=== PATIENT | female | born 1985 | race Caucasian/White ===

== ENCOUNTER → 2017-11-08 19:18 | Outpatient (CLI) | payer BC, SELFPAY ==
[2017-11-14 10:13] LABS: HPV APTIMA, High Risk Positive (Negative)
== END ==
PROVIDERS: Family Provider Family Medicine; PCP Family Medicine; Visit Provider Obstetrics & Gynecology
DX: Z12.4 Encounter for screening for malignant neoplasm of cervix (principal)
CPT/HCPCS: 88175; G0145

== ENCOUNTER → 2017-12-23 12:13 | Outpatient (CLI) | payer BC, SELFPAY ==
[2017-12-23 13:06] LABS: Absolute Lymphocyte Count 1.65 X10^3/ul (0.83-4.51); Absolute Neutrophil Count 3.8 X10^3/uL (2.0-7.7); Basophil# 0.01 X10^3/uL; Basophil% 0.2 % (0-1); Eosinophil# 0.05 X10^3/uL; Eosinophils% 0.8 % (0-5); Hematocrit 41.8 % (37-47); Hemoglobin 14.4 g/dl (12.0-15.0); Lymphocyte # 1.65 X10^3/ul (4.0); Lymphocyte % 27.5 % (19-41); Mean Corp Hgb Conc 34.4 g/gl (32-36); Mean Corpuscular Hgb 30.8 pg (27.0-32.0); Mean Corpuscular Volume 89.3 fL (81-99); Mean Platelet Vol. 9.5 fl (6.2-12.0); Monocyte# 0.44 X10^3/uL; Monocyte% 7.3 % (0-10); Neutrophil # 3.83 X10^3/uL (2.7-7.7); Platelet Count 314 K/mm3 (150-450); RBC Distribution Width CV 13.2 % (11.6-14.6); RBC Distribution Width SD 42.8 fl (35.1-43.9); Red Blood Count 4.68 M/mm3 (4.2-5.4)
[2017-12-23 13:07] LABS: POSITIVE COUNT NO; POSITIVE DIFFERENTIAL NO; POSITIVE MORPHOLOGY NO
[2017-12-23 13:48] LABS: hCG Titer Quant., Serum 6938 mIU/mL (<9 non-preg)
[2017-12-23 14:16] LABS: HIV - WCH Non-Reactive (Nonreactive); Rubella IgG 157.7 IU/mL
[2017-12-23 22:11] LABS: Chlamydia Trachomatis by PCR Negative (Negative); Neisserai gonorrhoeae by PCR Negative (Negative); Probe Check PASS; Sample Adequacy Control PASS; Specimen Processing Control PASS
[2017-12-24 09:51] LABS: HEPATITIS B SURFACE AG Negative (Negative)
[2017-12-27 05:01] LABS: Rapid Plasmin Reagin (RPR) NONREACTIVE (NONREACTIVE)
== END ==
PROVIDERS: Family Provider Family Medicine; PCP Family Medicine; Visit Provider Obstetrics & Gynecology
DX: O09.90 Supervision of high risk pregnancy, unspecified, unspecified trimester (principal); O20.0 Threatened abortion; Z3A.00 Weeks of gestation of pregnancy not specified
CPT/HCPCS: 36415; 84702; 85025; 86592; 86703; 86762; 86850; 86900; 87077; 87086; 87088; 87186; 87340; 87491; 87591

== ENCOUNTER → 2017-12-26 11:17 | Outpatient (CLI) | payer BC, SELFPAY ==
[2017-12-26 12:15] LABS: Thyroid Stim Hormone (TSH) 0.25 uIU/mL (0.358-3.74)
[2017-12-26 13:08] LABS: Vitamin D,25 Hydroxy 22.6 ng/mL (29.95-100.01); hCG Titer Quant., Serum 13132 mIU/mL (<9 non-preg)
== END ==
PROVIDERS: Family Provider Family Medicine; PCP Family Medicine; Visit Provider Obstetrics & Gynecology
DX: Z12.4 Encounter for screening for malignant neoplasm of cervix (principal); N97.0 Female infertility associated with anovulation; Z13.220 Encounter for screening for lipoid disorders; Z13.21 Encounter for screening for nutritional disorder; E28.2 Polycystic ovarian syndrome; Z13.1 Encounter for screening for diabetes mellitus; O20.0 Threatened abortion
CPT/HCPCS: 36415; 82306; 84443; 84702

== ENCOUNTER → 2019-06-25 12:47 | Outpatient (CLI) | payer BC, SELFPAY ==
[2019-06-25 14:29] LABS: T4 Free Direct 1.02 ng/dL (0.76-1.46); Thyroid Stim Hormone (TSH) 0.62 uIU/mL (0.358-3.74); Vitamin D,25 Hydroxy 27.3 ng/mL (29.95-100.01)
[2019-06-26 16:08] LABS: Thyroid Stim Immunoglob <0.10 IU/L (0.00-0.55)
[2019-06-27 13:06] LABS: Anti-Thyroglobulin AB < 1.0 IU/mL (0.0-0.9); Thyroglobulin, Serum Qt. 31.3 ng/mL (1.5-38.5); Thyroid Peroxidase AB 13 IU/mL (0-34)
== END ==
PROVIDERS: Family Provider Family Medicine; PCP Family Medicine; Referring Provider Family Medicine; Visit Provider Family Medicine
DX: E01.0 Iodine-deficiency related diffuse (endemic) goiter (principal); E55.9 Vitamin D deficiency, unspecified; R79.89 Other specified abnormal findings of blood chemistry
CPT/HCPCS: 36415; 82306; 84432; 84439; 84443; 84445; 86376; 86800

== ENCOUNTER → 2019-06-26 08:46 | Outpatient (CLI) | payer BC, SELFPAY ==
--- NOTE | 2019-06-26 09:06 | US_ITS ---
STUDY: THYROID ULTRASOUND REASON FOR EXAM: Female, 34 years old. THYROMEGALY FELT BY DOCTOR -- LAST ULTRASOUND 2013 -- BIOPSY 2006 TECHNIQUE: Ultrasound evaluation of the thyroid was performed with real-time and static henry-scale imaging. COMPARISON: 04/19/2014 FINDINGS: RIGHT LOBE: The right lobe of the thyroid gland measures 5.5 x 2.2 x 1.9 cm. There is a homogeneous echotexture. There is no change from 1.6 x 2.4 cm oval hypoechoic solid nodule with microcalcifications. Ultrasound guided biopsy of this nodule is recommended if never performed. LEFT LOBE: The left lobe of the thyroid gland measures 5.5 x 1.8 x 1.0 cm. There is a homogeneous echotexture. No change in the 6 cm hypoechoic solid nodule in the left lobe consistent with an adenoma. Also no change in the smaller of 3 mm adenoma in the left lobe. ISTHMUS: The isthmus measures 3 mm thick. . The regional lymph nodes are normal. US/Thyroid IMPRESSION: No change in 1.6 x 2.4 cm dominant solid nodule the right lobe with microcalcifications. Ultrasound-guided biopsy of this nodule is recommended if never performed. Electronically Signed: Dar Salas MD at 15:43 EST Tel , Service support ,
== END ==
PROVIDERS: Family Provider Family Medicine; PCP Family Medicine; Referring Provider Family Medicine; Visit Provider Family Medicine
DX: E01.0 Iodine-deficiency related diffuse (endemic) goiter (principal)
CPT/HCPCS: 76536

== ENCOUNTER → 2019-07-20 15:50 | Outpatient (CLI) | payer BC, SELFPAY ==
--- NOTE | 2019-07-20 14:10 | ASPS_PTH ---
PATIENT: LAUREN MCMAHON LOC: [facility] U#:[id number] AGE/SX: 40/F ROOM: RE07/20/[address]: Dr. Neftaly Shane MD : 1985 BED: DIS: SPEC #: [id number] RECD: 07/20/19 15:47 STATUS: LUCY REQ #: [id number] DIONNA: 07/20/19 14:[address]: Neftaly Shane DEPT: CYTOLOGY RECD BY: Oli Venegas ENTERED: 07/21/19 09:47 SP TYPE: ASPIRATION OTHR DR: Dr. Nj Yeager MD Tissues: Thyroid gland, NOS Procedures: Special Stain Group II Cytology Other HEADER OPERATION: Right thyroid FNA PRE-OP DIAGNOSIS: Right thyroid nodule TISSUE SUBMITTED: Right thyroid slides x6 DIAGNOSIS CYTOLOGY Right thyroid nodule, FNA (smears): Benign follicular nodule. Adequate for evaluation. SJ:yogi 07/22/19 COMMENT Correlation with clinical, radiologic findings and appropriate follow up are necessary. CYTOLOGY STUDY Slides are reviewed. CYTOLOGY GROSS Received are six smears labeled with the patient's name and designated per the requisition as right thyroid. Submitted for staining. / yogi 07/21/19 TC:5 CPT: 56975
== END ==
PROVIDERS: PCP Family Medicine; Referring Provider Surgery; Visit Provider Surgery
DX: E04.1 Nontoxic single thyroid nodule (principal)
CPT/HCPCS: 88161; 88313

== ENCOUNTER → 2020-01-14 14:56 | Outpatient (CLI) | payer BC, SELFPAY | PROVIDERS: PCP Family Medicine; Referring Provider Family Medicine; Visit Provider Family Medicine | DX: B34.9 Viral infection, unspecified (principal) | CPT/HCPCS: 87635; U0003 ==